=== PATIENT | male | born 1990 | race Caucasian/White ===

== ENCOUNTER 2019-12-28 04:04 | Emergency (ER) | payer BC ==
[~2019-12-28] VITALS: Ht 182.9 cm; Wt 99.8 kg
[2019-12-28] MEDS ORDERED: EPINEPHRINE (1:1000) 1 MG/ML AMPUL ONE (04:10)
--- NOTE | 2019-12-28 04:10 | NUR ---
MD AT BEDSIDE FOR EVALUATION
--- NOTE | 2019-12-28 04:10 | NUR ---
PT BIBSELF C/O SOB WITH AUDIBLE WHEEZING. 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 DENIES HISTORY OF ASTHMA. O2 SAT 80% ON ARRIVAL. PT PLACED ON NONREBREATHER 15L, TOLERATING WELL O2 SAT NOW 97%. NOTED HYPERTENSION AND TACHYCARDIA, MD AWARE. PT AAOX4. APPEARS SOB, DIFFICULTY SPEAKING IN FULL SENTENCES. PLACED ON CONTINUOUS SENIOR MICROSTRATEGY DEVELOPER AND PULSE OX, WILL CONTINUE TO MONITOR.
--- NOTE | 2019-12-28 04:10 | NUR ---
IV INITATED LAC 18G. LABS DRAWN FROM SITE. TRADEMARK [facility] AT BEDSIDE FOR COLLECTION. IV INTACT AND PATENT, PLACED ON SALINE LOCK
[2019-12-28] MEDS ORDERED: FAMOTIDINE/PF INJ 20 MG/2 ML VIAL IV ONE ×2 (04:17→04:30)
[2019-12-28] MEDS ORDERED: diphenhydrAMINE HCL 50 MG/ML VIAL ONE (04:17)
[2019-12-28] MEDS ORDERED: methylPREDNISolone SOD SUCC 125 MG/2ML VIAL ONE (04:17)
[2019-12-28] MEDS ORDERED: IPRATROPIUM NEB FS 0.5 MG/2.5 ML AMPUL.NEB ONE (04:26)
[2019-12-28] MEDS ORDERED: ALBUTEROL FS 2.5 MG/3 ML VIAL.NEB ONE (04:26)
--- NOTE | 2019-12-28 04:28 | NUR ---
RT AT BEDSIDE FOR BREATHING TREATMENT
[2019-12-28] MEDS ORDERED: diphenhydrAMINE HCL 50 MG/ML VIAL IV ONE (04:30)
[2019-12-28] MEDS ORDERED: methylPREDNISolone SOD SUCC 125 MG/2ML VIAL IV ONE (04:30)
[2019-12-28] MEDS ORDERED: ALBUTEROL FS 2.5 MG/3 ML VIAL.NEB CONTNEB ONE (04:30)
[2019-12-28] MEDS ORDERED: EPINEPHRINE (1:1000) MDV 30 MG/30ML VIAL SUBCUT ONE (04:30)
[2019-12-28] MEDS ORDERED: IPRATROPIUM NEB FS 0.5 MG/2.5 ML AMPUL.NEB NEB ONE (04:30)
[2019-12-28 05:07] LABS: BASOPHILS # (AUTO) 0.1 /CMM (0.0-0.2); BASOPHILS % (AUTO) 0.7 % (0.0-2.0); HEMATOCRIT 47 % (39-51); HEMOGLOBIN 15.9 g/dL (13.5-17.5); LYMPHOCYTES # (AUTO) 2.9 /CMM (0.8-4.8); LYMPHOCYTES % (AUTO) 30.2 % (20.0-44.0); MEAN CORPUSCULAR HGB CONC 34 g/dl (31.0-36.0); MEAN CORPUSCULAR VOLUME 86 fL (80-96); NEUTROPHILS # (AUTO) 5.1 /CMM (1.8-8.9); NEUTROPHILS % (AUTO) 53.1 % (43.0-81.0); PLATELET COUNT (AUTO) 254 /CMM (150-450); RED BLOOD CELL COUNT(AUTO) 5.42 MIL/uL (4.5-6.0); WHITE BLOOD COUNT (AUTO) 9.6 K/uL (4.3-11.0)
[2019-12-28 05:19] LABS: CALCIUM, SERUM 8.7 mg/dL (8.5-10.1); CARBON DIOXIDE 28 mmol/L (21-32); CHLORIDE 104 mmol/L (98-107); CREATININE 0.9 mg/dL (0.6-1.3); GLUCOSE 113 mg/dL (74-106); POTASSIUM 3.7 mmol/L (3.5-5.1); SODIUM SERUM 141 mmol/L (136-145); UREA NITROGEN, BLOOD 17 mg/dL (7-18)
[2019-12-28 05:31] LABS: ALANINE AMINOTRANSFERASE 24 U/L (12-78); ALBUMIN 4.3 g/dL (3.4-5.0); ALKALINE PHOSPHATASE 98 U/L (46-116); ASPARTATE AMINOTRANSFERASE 17 U/L (15-37); B-TYPE NATRIURETIC PEPTIDE 12 PG/ML (0-125); BILIRUBIN,DIRECT 0.2 mg/dL (0.0-0.2); BILIRUBIN,TOTAL 0.6 mg/dL (0.2-1.0)
--- NOTE | 2019-12-28 06:11 | NUR ---
Trey herrmann in ED - 12/28/19 at 0622 by MIKE BREATHING TREATMENT COMPLETED. O2 SAT 89% ROOM AIR. PLACED ON 2L NC, TOLERATING WELL O2 SAT NOW 97%
--- NOTE | 2019-12-28 06:11 | NUR ---
BREATHING TREATMENT COMPLETED. O2 SAT 89% ROOM AIR. PLACED ON 4L NC, TOLERATING WELL O2 SAT NOW 97%
--- NOTE | 2019-12-28 07:18 | NUR ---
Patient discharged to home in stable condition. Written and verbal after care instructions given. Patient verbalizes understanding of instruction.IV removed. Catheter intact and site benign. Pressure and 4x4 applied to site. No bleeding noted.Pt ambulatory with a steady gait
[2019-12-28 07:19] VITALS: BP 121/58
== END 2019-12-28 07:19 | disposition home or self-care (01) ==
LOC: ER 04:06
DX: J96.00 Acute respiratory failure, unspecified whether with hypoxia or hypercapnia (principal); J98.01 Acute bronchospasm; Z88.0 Allergy status to penicillin
CPT/HCPCS: 36415; 71045; 80048; 80076; 83880; 84484; 85025; 93005; 94644; 96372; 96374; 96375; 99291; J0171 ×2; J1200; J2930; J3490